=== PATIENT | female | born 1985 | race Caucasian/White ===

== ENCOUNTER 2023-04-24 14:46 | Emergency (ER) | payer OTHER, SELFPAY ==
[2023-04-24 15:03] VITALS: BP 157/89; PULSE 88; RESP 16; TEMP 37.4; O2SAT 96
--- NOTE | 2023-04-24 15:51 | ED.NAVMDI ---
HPI - Nausea/Vomiting/Diarrhea General Chief complaint: Nausea/Vomiting/Diarrhea Stated complaint: Fever/Diarrhea Time Seen by Provider: 04/24/23 15:52 Source: patient, RN notes reviewed and old records reviewed Mode of arrival: ambulatory Limitations: no limitations History of Present Illness HPI Narrative: 38 year old female who presents to [facility] with complaints of fever last evening and diarrhea this morning with abdominal cramps voiced. Patient reports that he has been taking Pepto Bismol for his symptoms. Patient states cramping in abdomen prior to diarrhea, has had 6 stools today. Patient states he felt feverish starting last night but did not take his temperature and did not take any OTC medications for fevers. Patient denies any vomiting or anyone else in household with similiar symptoms. MD elicited complaint: diarrhea Onset (ago): day(s) (1) Description of diarrhea: watery Associated nausea: Yes Associated abdominal pain: Yes Location of pain: other (mid abdomen) Pain consistency: intermittent and colicky Pain scale (0-10): 3 Quality: cramping Treatment prior to arrival: other (Pepto Bismol) Related Data Allergies Allergy/AdvReac Type Severity Reaction Status Date / Time No Known Allergies Allergy Verified 04/24/23 15:02 Review of Systems Review of Systems: CONSTITUTIONAL: Denies known fever,states has felt feverish, no chills, or sweats. ENT: Denies rhinorrhea, congestion, sore throat, or otalgia. CARDIOVASCULAR: Denies chest pain, palpitations, or edema. RESPIRATORY: Denies cough or dyspnea. GASTROINTESTINAL: Reports crampy mid abdominal pain prior to diarrhea , positive for nausea, no vomiting,positive for diarrhea. GENITOURINARY: Denies dysuria or hematuria. SKIN: Denies rash or itching. MUSCULOSKELETAL: Denies back pain, joint pain, or myalgia. NEUROLOGIC: Denies headache, numbness, or weakness. All systems reviewed & are unremarkable except as noted in HPI and below PMFSH Social History Social History (Updated 04/25/23 @ 20:07 by Aylin Salgado NP) Smoking status: Smoker, status unknown Alcohol intake: current Alcohol use details: social Substance use type: does not use Gender identity (if verbalized by the patient): Male Comments At time of signature, agree with nursing past medical, surgical, social and family history. There is no relevant family history pertinent to the presenting complaint Exam Narrative: GENERAL: Well-appearing, well-nourished, and in no acute distress. HEAD: Normocephalic, atraumatic. EYES: PERRLA, conjunctivae clear, and EOMI. ENT: Nares clear. Mucous membranes moist. Oropharynx without edema, erythema, or lesions. Tonsils not enlarged and without exudate. NECK: Supple. No lymphadenopathy CHEST: Speaks in full sentences. No respiratory distress.SAO2 96% on room air HEART: Regular rate and rhythm. ABDOMEN: Soft, flat, nondistended. No guarding, rebound tenderness, or rigid. No pulsatilla masses. Bowel sounds present in all four quadrants. No organomegaly. Negative Lay?s sign.No McBurney point tenderness, No periumbilical tenderness. No Supra public tenderness or distension. Good femoral pulses bilaterally. No hernia noted. No scars or surface trauma. SKIN: Warm, dry, no rash. NEURO:? Alert and oriented x3. PSYCH: Normal mood and affect Course Course Emergency Course: Patient is aware of diagnosis, understands and agrees to treatment plan.? Anticipatory guidance given.? Patient agrees to follow-up as directed and is aware of reasons to seek care at the emergency department. Portions of this record may have been created with voice recognition software Level of Care: Express Care Visit Vital Signs Vital signs: Vital Signs Temperature 37.4 C 04/24/23 15:03 Pulse Rate 88 04/24/23 15:03 Respiratory Rate 16 04/24/23 15:03 Blood Pressure 157/89 H 04/24/23 15:03 Pulse Oximetry 96 04/24/23 15:03 Oxygen Delivery
== END 2023-04-24 16:32 | disposition home or self-care (01) ==
PROVIDERS: Emergency Provider Registered Nurse
DX: K52.9 Noninfective gastroenteritis and colitis, unspecified (principal); Z20.822 Contact with and (suspected) exposure to COVID-19
CPT/HCPCS: 87426; 87804; 99213; G0463